=== PATIENT | female | born 1990 | race Caucasian/White ===

== ENCOUNTER 2017-06-15 20:49 | Emergency (ER) | payer OTHER ==
[~2017-06-15] VITALS: Ht 170.2 cm; Wt 68.0 kg
[~2017-06-15 20:49] MED LIST: ACEBUTCAFT PO; ALBU90OI INH; AMOX500 PO; BACITO TP; BIRTH CONTROL PATCH; CEPH500 PO; CIPR500 PO; CLIN300 PO; HYDACE5 PO; NAPR375 PO; NAPR500 PO; OXYACE5T PO; PENVK500 PO; PROM25 PO; RXHYDACE PO; RXOXYACE PO; RXPENVK250 PO; RXTRAM50 PO; SULI150 PO; SULTRIDS PO; TRAM50 PO; TRIM250 PO
[2017-06-15] MEDS ORDERED: ERYT1OIN BOTHEYES (21:31)
[2018-03-16] MEDS ORDERED: Miralax17 GM PO (17:27)
== END 2017-06-15 22:07 | disposition home or self-care (01) ==
LOC: ER 20:49
DX: Z77.098 Contact with and (suspected) exposure to other hazardous, chiefly nonmedicinal, chemicals (principal); F17.200 Nicotine dependence, unspecified, uncomplicated
CPT/HCPCS: 99283

== ENCOUNTER 2019-03-05 12:46 | Emergency (ER) | payer OTHER ==
[~2019-03-05] VITALS: Ht 170.2 cm; Wt 68.0 kg
[~2019-03-05 12:46] MED LIST changes: +ERYT1OIN BOTHEYES; +Miralax17 GM PO
== END 2019-03-05 13:30 | disposition home or self-care (01) ==
LOC: ER 12:46
DX: T24.211A Burn of second degree of right thigh, initial encounter (principal); T31.0 Burns involving less than 10% of body surface; Z87.891 Personal history of nicotine dependence; X11.8XXA Contact with other hot tap-water, initial encounter
CPT/HCPCS: 16020; 99283-25